=== PATIENT | female | born 1960 | race Caucasian/White ===

== ENCOUNTER 2020-05-07 19:59 | Observation (INO) ==
[2020-05-07 20:29] LABS: Basophils % 0.3 % (0.0-0.8); Eosinophils # 0.2 10*3/uL (0.0-0.87); Eosinophils % 1.7 % (0.00-10.9); Hematocrit 42.5 VOL% (35.7-47.0); Hemoglobin 14.2 GM/DL (12.0-16.0); Immature Granulocytes % 0.4 %; Immature Granulocytes Absolute 0.04 #; Lymphocytes # 2.7 10*3/uL (1.4-4.0); Lymphocytes % 28.4 % (21.3-54.2); Mean Corpuscular HGB Conc 33.4 GM/DL (32-36); Mean Corpuscular Volume 86.9 FL (87-102); Mean Platelet Volume 10.1 FL (9.6-12.0); Monocytes % 5.1 % (1.7-12.7); Neutrophils % 64.1 % (38.7-73.9); Platelet Count 190 T/CUMM (130-400); Red Blood Count 4.89 MC/CUMM (3.8-5.5); Red Cell Distribution Width 13.2 % (9.3-17.3); White Blood Count 9.6 T/CUMM (4-12)
[2020-05-07] MEDS ORDERED: MORPHINE 4 MG/1 ML VIAL IV STA (20:32)
[2020-05-07] MEDS ORDERED: ONDANSETRON 4 MG/2 ML VIAL IV ONE (20:32)
[2020-05-07] MEDS ORDERED: DILTIAZEM 50 MG/10 ML VIAL IV STA ×2 (20:32→21:35)
[2020-05-07] MEDS ORDERED: ASPIRIN 325 MG TABLET PO STA (20:32)
[2020-05-07] MEDS ORDERED: SODIUM CHLORIDE 0.9% 500 ML IV STA (20:33)
[2020-05-07 20:40] LABS: PT Patient Result 10.9 SECS (9.8-11.9); Partial Thromboplastin Time 28.4 SECS (23.9-33.8)
[2020-05-07 20:48] LABS: Alanine Aminotransferase 38 U/L (13-56); Albumin 3.5 G/DL (3.4-5.0); Alkaline Phosphatase 132 U/L (45-117); Aspartate Amino Transferase 26 U/L (0-37); Blood Urea Nitrogen 12 MG/DL (7-18); Calcium 9.2 MG/DL (8.5-10.1); Carbon Dioxide 24 MMOL/L (21-32); Estimated Glom Filtration Rate 101 ML/MIN; Glucose 157 MG/DL (74-106); Osmolality,Calculated 281.4 MOS/KG (273-304); Potassium 3.9 MMOL/L (3.5-5.1); Sodium 140 MMOL/L (136-145); Troponin I < 0.015 NG/ML (0.00-0.045)
[2020-05-07] MEDS ORDERED: DILTIAZEM INJ 100 MG in SODIUM CHLORIDE 0.9% 100 ML IV SCH (22:00)
[2020-05-07] MEDS ORDERED: GLUCAGON 1 MG VIAL IM PRN (22:28)
[2020-05-07] MEDS ORDERED: DEXTROSE 50% 25 GM/50 ML VIAL IV PRN (22:28)
[2020-05-07] MEDS ORDERED: hydrALAZINE 20 MG/1 ML VIAL IV PRN (22:33)
[2020-05-07] MEDS ORDERED: MORPHINE 4 MG/1 ML VIAL IV PRN (22:33)
[2020-05-07] MEDS ORDERED: ONDANSETRON 4 MG/2 ML VIAL IV PRN (22:33)
[2020-05-07] MEDS ORDERED: ACETAMINOPHEN 325 MG TABLET PO PRN (22:33)
[2020-05-07] MEDS ORDERED: ENOXAPARIN 40 MG/0.4 ML SYRINGE SUBCUT SCH (23:00)
[2020-05-08] MEDS ORDERED: ENOXAPARIN 40 MG/0.4 ML SYRINGE SUBCUT ONE (00:12)
[2020-05-08] MEDS ORDERED: tiZANidine 4 MG TABLET PO SCH (00:15)
[2020-05-08] MEDS ORDERED: PRAMIPEXOLE 1 MG TABLET PO SCH (00:30)
[2020-05-08] MEDS ORDERED: LOSARTAN 50 MG TABLET PO SCH (00:30)
[2020-05-08] MEDS ORDERED: SERTRALINE 50 MG TABLET PO SCH (00:30)
[2020-05-08] MEDS ORDERED: ATORVASTATIN 40 MG TABLET PO SCH (00:30)
[2020-05-08] MEDS: GABAPENTIN 300 MG CAPSULE PO SCH ×2 (01:00→09:00)
[2020-05-08 01:34] LABS: Risk Ratio 2.81; Thyroid Stimulating Hormone 2.84 uIU/ml (0.358-3.74); VLDL CHOLESTEROL 17.2 MG/DL
[2020-05-08] MEDS: INSULIN REGULAR 100 UNIT/ML SUBCUT SCH ×3 (09:00→16:00)
[2020-05-08] MEDS ORDERED: DIGOXIN 0.5 MG/2 ML AMP IV ONE (09:41)
[2020-05-08] MEDS ORDERED: ENOXAPARIN 100 MG/ML SYRINGE SUBCUT SCH (10:30)
[2020-05-08] MEDS ORDERED: APIXABAN 5 MG TABLET PO SCH (11:00)
[2020-05-08] MEDS ORDERED: DILTIAZEM 30 MG TABLET PO SCH (15:00)
[2020-05-08 16:17] VITALS: BP 124/51
[2020-05-08] MEDS ORDERED: DILTIAZEM CD 120 MG CAPSULE PO SCH (21:00)
== END 2020-05-08 16:45 | disposition home or self-care (01) ==
LOC: N.EDINP 19:59 → N.ED 19:59 → N.EDINP 05-08 00:10 → N.TELES 05-08 00:17
PROVIDERS: ADMIT Internal Medicine; ATTEND Internal Medicine